=== PATIENT | male | born 1960 | race Caucasian/White ===

== ENCOUNTER 2024-09-22 07:52 | Inpatient (IN) | payer BC ==
[2024-09-22] MEDS ORDERED: Sodium Chloride 0.9% 10 ML Syringe FLUSH PRN ×2 (08:22→08:23)
[2024-09-22 08:31] LABS: BASOPHILS ABSOLUTE AUTO 0.1 K/mm3 (0.0-0.2); BASOPHILS PERCENT AUTO 0.5 % (0.0-1.0); EOSINOPHILS ABSOLUTE AUTO 0.1 K/mm3 (0.0-0.4); HEMATOCRIT 48.6 % (42.0-52.0); HEMOGLOBIN 16.3 gm/dl (14.0-18.0); IMMATURE GRAN ABSOLUTE AUTO 0.03 K/mm3 (0.00-0.05); IMMATURE GRAN PERCENT AUTO 0.3 % (0.0-0.4); LYMPHOCYTES ABSOLUTE AUTO 1.7 K/mm3 (1.0-4.8); LYMPHOCYTES PERCENT AUTO 16.6 % (24.0-44.0); MEAN CORPUSCULAR HEMOGLOBIN 29.7 pg (28.0-32.0); MEAN CORPUSCULAR HGB CONC 33.5 g/dl (32.0-36.0); MEAN CORPUSCULAR VOLUME 88.5 fl (83.0-99.0); MONOCYTES ABSOLUTE AUTO 0.6 K/mm3 (0.0-0.8); MONOCYTES PERCENT AUTO 5.9 % (0.0-8.0); NEUTROPHILS ABSOLUTE AUTO 7.7 K/mm3 (1.8-7.7); NEUTROPHILS PERCENT AUTO 75.7 % (41.0-71.0); PLATELET COUNT,PLT 234 K/mm3 (150-400); RED BLOOD CELL COUNT 5.49 M/mm3 (4.52-5.90); WHITE BLOOD CELL COUNT,WBC 10.21 K/mm3 (3.9-11.3)
[2024-09-22 08:45] LABS: INR 0.97; PROTHROMBIN TIME 10.3 SECONDS (9.7-12.0)
[2024-09-22] MEDS ORDERED: Sodium Chloride 0.9% 100 ML IV SCH (08:45)
[2024-09-22] MEDS: Iopamidol 755 Mg/ML 100 ML Bottle IVPUSH ONE (08:46)
[2024-09-22 08:47] LABS: PTT,PARTIAL THROMBOPLSTIN TIME 25.6 SECONDS (21.7-31.4)
[2024-09-22 08:55] LABS: ALANINE AMINOTRANSFERASE,ALT 23 U/L (16-63); ALBUMIN 3.8 g/dl (3.4-5.0); ALKALINE PHOSPHATASE 60 U/L (46-116); ANION GAP 12.9 (5-15); ASPARTATE AMNIOTRANSFERASE,AST 11 U/L (15-37); BLOOD UREA NITROGEN,BUN 13 mg/dL (7-18); BUN/CREATININE RATIO 11.8 (14-18); CARBON DIOXIDE,CO2 26 mEq/L (21-32); CHLORIDE,CL 106 mEq/L (98-107); CREATININE 1.1 mg/dL (0.7-1.3); EST CRCL DRUG DOSING (CG) 74.46 mL/min; ESTIMATED GFR 75 mL/min (>60); GLUCOSE RANDOM 110 mg/dL (70-99); POTASSIUM,K 3.9 mEq/L (3.5-5.1); PROTEIN TOTAL,TP 7.8 g/dl (6.4-8.2); SODIUM,NA 141 mEq/L (136-145)
[2024-09-22 09:04] LABS: APPEARANCE,URINE CLEAR (Clear); BILIRUBIN,URINE NEGATIVE (Negative); COLOR,URINE DARK YELLOW (Yellow); GLUCOSE,URINE NEGATIVE (Negative); KETONES,URINE TRACE (Negative); LEUKOCYTE ESTERASE,URINE NEGATIVE (Negative); NITRITE,URINE NEGATIVE (Negative); OCCULT BLOOD,URINE NEGATIVE (Negative); PROTEIN,URINE NEGATIVE (Negative)
[2024-09-22 09:14] LABS: TROPONIN I HIGH SENSITIVITY < 4 pg/mL (<=76)
[2024-09-22] MEDS: Sodium Chloride 0.9% 500 ML IV ONE (09:28)
[2024-09-22] MEDS: Sodium Chloride 0.9% 10 ML Syringe FLUSH PRN (09:29)
[2024-09-22] MEDS: atorvaSTATin 40 MG Tab PO ONE (11:55)
[2024-09-22] MEDS: Aspirin 81 MG Tab.Chew PO ONE (11:55)
[2024-09-22] MEDS: Sodium Chloride 0.9% 1,000 ML IV ONE (11:56)
[2024-09-22] MEDS ORDERED: Acetaminophen 325 MG Tab PO PRN (13:36)
[2024-09-22] MEDS ORDERED: Ondansetron 4 MG/2 ML SDV IV PRN (13:36)
[2024-09-22] MEDS ORDERED: hydrOXYzine HCl 25 MG Tab PO PRN (20:07)
[2024-09-22] MEDS ORDERED: Melatonin 3 MG Tab PO SCH (21:00)
[2024-09-22] MEDS: Melatonin 3 MG Tab PO PRN (21:29)
[2024-09-23 06:45] LABS: HEMATOCRIT 41.2 % (42.0-52.0); HEMOGLOBIN 13.9 gm/dl (14.0-18.0); MEAN CORPUSCULAR HEMOGLOBIN 29.5 pg (28.0-32.0); MEAN CORPUSCULAR HGB CONC 33.7 g/dl (32.0-36.0); MEAN CORPUSCULAR VOLUME 87.5 fl (83.0-99.0); MEAN PLATELET VOLUME 9.3 fl (9.4-12.4); PLATELET COUNT,PLT 219 K/mm3 (150-400); RED BLOOD CELL COUNT 4.71 M/mm3 (4.52-5.90); WHITE BLOOD CELL COUNT,WBC 9.53 K/mm3 (3.9-11.3)
[2024-09-23 07:11] LABS: A/G RATIO 0.9 (1-2); CALCIUM 8.5 mg/dL (8.5-10.1); CREATININE 0.9 mg/dL (0.7-1.3); EST CRCL DRUG DOSING (CG) 91.01 mL/min; PROTEIN TOTAL,TP 6.3 g/dl (6.4-8.2)
[2024-09-23 07:25] LABS: HEMOGLOBIN A1C 5.1 %
[2024-09-23] MEDS: Enoxaparin 40 MG/0.4 ML Syringe SUBCUT SCH (08:18)
[2024-09-23] MEDS: Metoprolol Succinate 25 MG Tab.ER PO SCH (08:18)
[2024-09-23] MEDS: Aspirin 81 MG Tab.Chew PO SCH (08:19)
[2024-09-23] MEDS: Tamsulosin 0.4 MG Cap.ER PO SCH (08:19)
[2024-09-23] MEDS: atorvaSTATin 40 MG Tab PO SCH (08:19)
[2024-09-23] MEDS: Finasteride 5 MG Tab PO SCH (08:19)
[2024-09-24 04:41] LABS: HEMATOCRIT 40.9 % (42.0-52.0); HEMOGLOBIN 13.9 gm/dl (14.0-18.0); MEAN CORPUSCULAR HEMOGLOBIN 29.5 pg (28.0-32.0); MEAN CORPUSCULAR VOLUME 86.8 fl (83.0-99.0); MEAN PLATELET VOLUME 9.4 fl (9.4-12.4); PLATELET COUNT,PLT 210 K/mm3 (150-400); RED BLOOD CELL COUNT 4.71 M/mm3 (4.52-5.90); WHITE BLOOD CELL COUNT,WBC 8.15 K/mm3 (3.9-11.3)
[2024-09-24 05:02] LABS: A/G RATIO 0.9 (1-2); ANION GAP 12.9 (5-15); BILIRUBIN TOTAL 1.2 mg/dL (0.2-1.0); CALCIUM 8.5 mg/dL (8.5-10.1); EST CRCL DRUG DOSING (CG) 81.91 mL/min; POTASSIUM,K 3.9 mEq/L (3.5-5.1); PROTEIN TOTAL,TP 6.4 g/dl (6.4-8.2)
== END 2024-09-24 10:09 | disposition home or self-care (01) | DRG 45 ==
LOC: JD.ED 07:52 → JD.MS 11:20
PROVIDERS: ADMIT Internal Medicine; ATTEND Internal Medicine
DX: I63.9 Cerebral infarction, unspecified (principal); H54.7 Unspecified visual loss; N40.1 Benign prostatic hyperplasia with lower urinary tract symptoms; R29.705 NIHSS score 5; Z72.0 Tobacco use; Z79.899 Other long term (current) drug therapy
CPT/HCPCS: 36415; 70450; 70450-26; 70496; 70496-26; 70498; 70498-26; 80053; 80061; 80307; 81003; 82947; 83036; 83735; 84484; 85025; 85027; 85610; 85730; 92523-GN; 93005; 93010; 93306; 96360; 96361; 97110-GP; 97112-GP; 97116-GP; 97161-GP; 99285; 99285-25; A9270-GY; J1650; J7030; Q9967